=== PATIENT | female | born 1950 | race Caucasian/White ===

== ENCOUNTER 2017-11-24 10:25 | Emergency (ER) | payer BC, OTHER ==
[2017-11-24 11:23] LABS: ADD MAN DIFF? NO
[2017-11-24] MEDS: KETOROLAC 30 MG INJ IV (11:24)
[2017-11-24 11:34] LABS: WHITE BLOOD COUNT 9.2 10^3/ul (4.8-10.8)
[2017-11-24 11:34] LABS: BASOPHILS % 0.4 % (0.0-2.0); EOSINOPHILS # 0.1 10^3/ul (0.0-0.5); EOSINOPHILS % 1.1 % (0.0-7.0); HEMATOCRIT 36.1 % (37.0-47.0); HEMOGLOBIN 12.3 g/dl (12.0-16.0); LYMPHOCYTES # 1.8 10^3/ul (0.8-2.9); LYMPHOCYTES % 19.6 % (15.0-51.0); MEAN CORPUSCULAR HEMOGLOBIN 28.8 pg (29.0-33.0); MEAN CORPUSCULAR HGB CONC 34.1 g/dl (32.0-37.0); MEAN CORPUSCULAR VOLUME 84.5 fl (82.0-101.0); MEAN PLATELET VOLUME 11.3 fl (7.4-10.4); MONOCYTE # 0.5 10^3/ul (0.3-0.9); MONOCYTES % 5.2 % (0.0-11.0); NEUTROPHIL # 6.7 10^3/ul (1.6-7.5); NEUTROPHILS % 73.3 % (39.0-77.0); PLATELET COUNT 247 10^3/UL (140-415); RED BLOOD COUNT 4.27 10^6/ul (4.20-5.40); RED CELL DISTRIBUTION WIDTH 13.2 % (11.5-14.5)
[2017-11-24 11:59] LABS: ANION GAP 17 (8-16); BLOOD UREA NITROGEN 20 mg/dl (7-20); CALCIUM 9.5 mg/dl (8.4-10.2); CARBON DIOXIDE 23 mmol/L (21-31); CHLORIDE 104 mmol/L (97-110); CREATININE 0.75 mg/dl (0.44-1.00); GLUCOSE 180 mg/dl (70-220); POTASSIUM 4.3 mmol/L (3.5-5.1); SODIUM 140 mmol/L (135-144)
[2017-11-24 12:11] LABS: TROPONIN-I < 0.012 ng/ml (0.00-0.12)
[2017-11-24 12:40] LABS: ERYTHROCYTE SEDIMENTATION RATE 21 mm/Hr (0-30)
[2017-11-24 12:43] LABS: URIC ACID 4.8 mg/dl (3.1-7.9)
[2017-11-24 12:43] LABS: C-REACTIVE PROTEIN 1.3 mg/dl (0.0-0.9)
== END 2017-11-24 13:53 | disposition home or self-care (01) ==
LOC: E/R 10:25
DX: M19.032 Primary osteoarthritis, left wrist (principal); R07.89 Other chest pain; I10 Essential (primary) hypertension; Z79.84 Long term (current) use of oral hypoglycemic drugs
CPT/HCPCS: 29125; 36415; 71045; 73110-LT; 80048; 84484; 84560; 85025; 85651; 86140; 93005; 96374; 99285-25

== ENCOUNTER 2018-02-06 11:09 | Emergency (ER) | payer MEDICARE, BC ==
[2018-02-06 12:03] LABS: URINE PH (Dip) POC 5.5 (5.0-8.5)
[2018-02-06 12:03] LABS: URINE BLOOD (Dip) POC Negative (NEGATIVE); URINE KETONES (Dip) POC Negative (NEGATIVE); URINE LEUKOCYTE EST (Dip) POC Trace (NEGATIVE); URINE NITRITE (Dip) POC Negative (NEGATIVE); URINE TOTAL PROTEIN POC Negative (NEGATIVE)
[2018-02-06] MEDS: LIDOCAINE 5% PATCH TD (12:43)
[2018-02-06] MEDS: HYDROCODONE/APAP (5/325) TAB PO (12:43)
== END 2018-02-06 13:56 | disposition home or self-care (01) ==
LOC: FTE 11:09
DX: M54.42 Lumbago with sciatica, left side (principal); I10 Essential (primary) hypertension; Z79.84 Long term (current) use of oral hypoglycemic drugs
CPT/HCPCS: 72131; 81003; 99284-25